=== PATIENT | male | born 1990 | race Caucasian/White ===

== ENCOUNTER 2018-06-30 12:43 | Emergency (ER) | payer MEDICAID ==
[~2018-06-30] VITALS: Ht 172.7 cm; Wt 81.2 kg
--- NOTE | 2018-06-30 12:48 | NUR ---
PATIENT TO BED 7 AT THIS TIME.
[2018-06-30 12:54] VITALS: BP 149/83
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
--- NOTE | 2018-06-30 14:00 | NUR ---
PT AWARE THAT HE WILL RECEIVE AN XRAY AND WET TO DRY DRESSING WILL BE PERFORMED THEN PT D/C. PT NEEDS MET, VSS, SAFETY PRECAUTIONS IN PLACE. WILL CONTINUE TO MONITOR.
[2018-06-30 14:28] VITALS: BP 149/83
--- NOTE | 2018-06-30 14:28 | NUR ---
PATIENT ELOPED FROM FACILITY. DISCHARGE INSTRUCTIONS NOT GIVEN TO PATIENT. DR. CEDILLO NOTIFIED.
== END 2018-06-30 14:28 | disposition left against medical advice (07) ==
LOC: MED 12:43
DX: L97.529 Non-pressure chronic ulcer of other part of left foot with unspecified severity (principal)
CPT/HCPCS: 99281

== ENCOUNTER 2021-10-17 21:18 | Emergency (ER) | payer MEDICAID ==
--- NOTE | 2021-10-17 21:50 | NUR ---
PATIENT CALLED FOT TRIAGE, NO RESPONSE PATIENT LEFT WITHOUT BEING SEEN BY DR. LITTLE. NO FURTHER CARE PROVIDED FOR PATIENT.
--- NOTE | 2021-10-17 21:55 | NUR ---
CALLED FOR THE SECOND TIME , NO RESPONSE
--- NOTE | 2021-10-17 22:08 | NUR ---
CALLED FOR THE THIRD TIME NO ANSWER, CALL VIA TELEPHONE
== END 2021-10-17 21:50 | disposition left against medical advice (07) ==
LOC: MED 21:18
DX: M25.569 Pain in unspecified knee (principal); Z53.21 Procedure and treatment not carried out due to patient leaving prior to being seen by health care provider

== ENCOUNTER 2022-07-27 09:50 | Emergency (ER) | payer MEDICAID ==
[~2022-07-27] VITALS: Ht 172.7 cm; Wt 77.1 kg
[2022-07-27 09:57] VITALS: BP 148/70
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
[2022-07-27] MEDS ORDERED: LIDOCAINE MPF 1% 10 MG/ML VIAL INJ ONE (11:30)
--- NOTE | 2022-07-27 11:46 | NUR ---
ID TRAY SET UP AT BEDSIDE. PATIENT WITH NO S/S OF ACUTE DISTRESS NOTED. SITTING UP IN BED, WILL CONTINUE TO MONITOR
[2022-07-27] MEDS ORDERED: ACET-8386 PO (12:12)
--- NOTE | 2022-07-27 12:26 | NUR ---
PT'S WOUNDS DRESSED WITH NON-ADHERENT GAUZE PAD AND WAPPED WITH 4" GUAZE ROLL.
[2022-07-27 12:32] VITALS: BP 141/79
== END 2022-07-27 12:32 | disposition home or self-care (01) ==
LOC: MED 09:50
DX: L02.612 Cutaneous abscess of left foot (principal); L03.116 Cellulitis of left lower limb; F17.210 Nicotine dependence, cigarettes, uncomplicated; Z79.899 Other long term (current) drug therapy; Z98.890 Other specified postprocedural states
CPT/HCPCS: 10060; 73630; 99284; J2001; Q0092; 99283